=== PATIENT | male | born 1960 | race Caucasian/White ===

== ENCOUNTER → 2018-06-24 13:11 | Outpatient (CLI) | payer MEDICAID, SELFPAY ==
[2018-06-24 14:41] LABS: Anion Gap 9.4 mmol/L (3-11); BUN 17 mg/dL (7-18); CO2 27.6 mmol/L (21.0-32.0); CREATININE 1.33 mg/dL (0.70-1.30); Chloride 105 mmol/L (98-107); Estimated GFR 55.23 (mL/min/1.73m2); Glucose 90 mg/dL (70-100); Potassium 4.5 mmol/L (3.5-5.1); Sodium 142 mmol/L (136-145)
== END ==
PROVIDERS: PCP Nurse Practitioner; Visit Provider Nurse Practitioner
DX: R79.9 Abnormal finding of blood chemistry, unspecified (principal)
CPT/HCPCS: 36415; 80048

== ENCOUNTER 2019-02-16 17:37 | Emergency (ER) | payer MEDICAID, SELFPAY ==
--- NOTE | 2019-02-16 17:48 | W.ED.GENAD ---
Discharge Plan Disposition Patient Disposition: HOME Condition: Stable Discharge Details Clinical Impression: Dog bite of left hand Primary Care Provider: Phuong Castle ED Provider: Tristen Rodriguez Home Meds and New Rx's Prescriptions: New amoxicillin-pot clavulanate [Augmentin] 875-125 mg tablet 1 tab PO BID Qty: 14 RF: 0 No Action albuterol sulfate [ProAir HFA] 8.5 GM HFA aerosol inhaler 1 - 2 puff Inhalation Q4H PRN Qty: 3 RF: 4 fluticasone propion-salmeterol [Advair HFA] 8 GM HFA aerosol inhaler 2 puff Inhalation BID Qty: 1 RF: 11 buspirone 10 MG tablet 10 mg PO BID Qty: 180 RF: 3 levothyroxine [Synthroid] 75 MCG tablet 75 mcg PO DAILY Qty: 90 RF: 3 Citalopram Hydrobromide [Citalopram HBr] 10 MG tablet 10 mg PO DAILY Qty: 90 RF: 3 lisinopril 5 MG tablet 5 mg PO DAILY Qty: 90 RF: 3 fluticasone propionate 50 mcg/actuation spray,suspension 50 mcg NS DAILY Qty: 16 RF: 12 ropinirole 1 mg tablet 1 mg PO QHS RF: 0 pantoprazole [Protonix] 40 mg tablet,delayed release (DR/EC) 40 mg PO DAILY Qty: 90 RF: 3 Discharge Instructions Instructions: Animal Bite (ED) Medical Decision Making 58 yo male come in after a person he knows dog bit his left hand. Has one superficial puncture wound to posterior left hand, no severe pain, full rom, no palpable deformities so do not feel xray indicated as unlikely fx. States last tetanus vaccine within 2 years and that dog is utd on rabies and person he knows can monitor the dog for rabies, will start augmentin and d/c home Differential Diagnosis bite wound, laceration HPI General Mode of arrival: ambulatory. Date/Time Provider Initiated Documentation: 02/16/19 17:48. Limitations to Documentation: no limitations. Information obtained by: patient. History of Present Illness 58 year old M presents to the emergency department with the chief complaint of left hand dog bite, described as mild, Quality is described as aching, and is localized to the left and upper extremity. Patient started experiencing this hour(s) (1) and it has been constant. No relieving factors improve symptom(s), No exacerbating factors reported . Patient notes no other symptoms.. Patient did receive the following treatments prior to arrival, none Related Data Home Medications Medication Instructions Recorded Confirmed albuterol sulfate [Proair Hfa] 1 - 2 puff INHALATION Q4H PRN #3 07/26/15 10/21/18 inhaler fluticasone propion-salmeterol 2 puff INHALATION BID #1 inhaler 03/25/18 10/21/18 [Advair Hfa 115-21] buspirone 10 mg PO BID #180 tab-cap 05/26/18 10/21/18 levothyroxine [Synthroid] 75 mcg PO DAILY #90 tab-cap 06/19/18 10/21/18 lisinopril 5 mg PO DAILY #90 tab-cap 06/29/18 10/21/18 fluticasone propionate 50 50 mcg NS DAILY #16 gm 11/24/18 mcg/actuation nasal spray,suspension ropinirole 1 mg tablet 1 mg PO QHS 01/29/19 pantoprazole 40 mg tablet,delayed 40 mg PO DAILY #90 tab 02/05/19 release amoxicillin-pot clavulanate 1 tab PO BID #14 tab 02/16/19 [Augmentin] Previous Rx's Medication Instructions Recorded fluticasone propion-salmeterol 2 puff INHALATION BID #1 inhaler 03/25/18 [Advair Hfa 115-21] buspirone 10 mg PO BID #180 tab-cap 05/26/18 levothyroxine [Synthroid] 75 mcg PO DAILY #90 tab-cap 06/19/18 lisinopril 5 mg PO DAILY #90 tab-cap 06/29/18 fluticasone propionate 50 50 mcg NS DAILY #16 gm 11/24/18 mcg/actuation nasal spray,suspension pantoprazole 40 mg tablet,delayed 40 mg PO DAILY #90 tab 02/05/19 release amoxicillin-pot clavulanate 1 tab PO BID #14 tab 02/16/19 [Augmentin] Allergies Allergy/AdvReac Type Severity Reaction Status Date / Time fluoxetine Allergy Mild unknown Verified 10/21/18 13:33 paroxetine Allergy Mild unknown Verified 10/21/18 13:33 ANIMAL DANDER Allergy Intermediate unknown Uncoded 10/21/18 13:33 Review of Systems Review of Systems All systems reviewed & are unremarkable except as noted in HPI and below Constitutional Denies chills, Denies fever(s) and Denies weakness ENT Denies change in voice Cardiovascular Denies chest pain and Denies dyspnea Respiratory Denies cough and Denies dyspnea Gastrointestinal Denies abdominal pain, Denies nausea and Denies vomiting Neurologic Denies weakness PFSH Surgical History tongue surgery Social History Smoking/Tobacco Use Status: Never Alcohol Intake: never Substance use type: does not use Housing: apartment Number of Children: 0 What type of physical activity do you participate in: walking Duration: 15-30 minutes/day Frequency: other Details: stationary bike Seatbelt use: always Drive intox or ride w/intox milk tanker driver: No Fire extinguisher in home: Yes Carbon monox detector in home: Yes Firearms in home: Yes Exam Const General: no acute distress Orientation: alert HENMT Head: normal to inspection Ears: external ears normal General nose exam: external nose normal Mouth: moist mucous membranes Eyes General: appearance normal, both eyes and all related structures Neck Neck: normal visual inspection Resp Effort & Inspection: normal respiratory effort and able to speak in complete sentences Cardio Rate: regular rate Skin General skin exam: no rashes or lesions noted Neuro General: alert and oriented x3 Extrem General: normal capillary refill Psych Mental Status: mental status grossly normal
--- NOTE | 2019-02-16 17:55 | ED.GENADUL_ITS ---
Discharge Plan Disposition Patient Disposition: HOME Condition: Stable Discharge Details Clinical Impression: Dog bite of left hand Primary Care Provider: Phuong Castle ED Provider: Tristen Rodriguez Home Meds and New Rx's Prescriptions: New amoxicillin-pot clavulanate [Augmentin] 875-125 mg tablet 1 tab PO BID Qty: 14 RF: 0 No Action albuterol sulfate [ProAir HFA] 8.5 GM HFA aerosol inhaler 1 - 2 puff Inhalation Q4H PRN Qty: 3 RF: 4 fluticasone propion-salmeterol [Advair HFA] 8 GM HFA aerosol inhaler 2 puff Inhalation BID Qty: 1 RF: 11 buspirone 10 MG tablet 10 mg PO BID Qty: 180 RF: 3 levothyroxine [Synthroid] 75 MCG tablet 75 mcg PO DAILY Qty: 90 RF: 3 Citalopram Hydrobromide [Citalopram HBr] 10 MG tablet 10 mg PO DAILY Qty: 90 RF: 3 lisinopril 5 MG tablet 5 mg PO DAILY Qty: 90 RF: 3 fluticasone propionate 50 mcg/actuation spray,suspension 50 mcg NS DAILY Qty: 16 RF: 12 ropinirole 1 mg tablet 1 mg PO QHS RF: 0 pantoprazole [Protonix] 40 mg tablet,delayed release (DR/EC) 40 mg PO DAILY Qty: 90 RF: 3 Discharge Instructions Instructions: Animal Bite (ED) Medical Decision Making 58 yo male come in after a person he knows dog bit his left hand. Has one superficial puncture wound to posterior left hand, no severe pain, full rom, no palpable deformities so do not feel xray indicated as unlikely fx. States last tetanus vaccine within 2 years and that dog is utd on rabies and person he knows can monitor the dog for rabies, will start augmentin and d/c home Differential Diagnosis bite wound, laceration HPI General Mode of arrival: ambulatory . Date/Time Provider Initiated Documentation: 02/16/19 17:48 . Limitations to Documentation: no limitations . Information obtained by: patient . History of Present Illness 58 year old M presents to the emergency department with the chief complaint of left hand dog bite, described as mild, Quality is described as aching, and is localized to the left and upper extremity. Patient started experiencing this hour(s) (1) and it has been constant. No relieving factors improve symptom(s), No exacerbating factors reported . Patient notes no other symptoms.. Patient did receive the following treatments prior to arrival, none Related Data Home Medications Medication Instructions Recorded Confirmed albuterol sulfate [Proair Hfa] 1 - 2 puff INHALATION Q4H PRN #3 07/26/15 10/21/18 inhaler fluticasone propion-salmeterol 2 puff INHALATION BID #1 inhaler 03/25/18 10/21/18 [Advair Hfa 115-21] buspirone 10 mg PO BID #180 tab-cap 05/26/18 10/21/18 levothyroxine [Synthroid] 75 mcg PO DAILY #90 tab-cap 06/19/18 10/21/18 lisinopril 5 mg PO DAILY #90 tab-cap 06/29/18 10/21/18 fluticasone propionate 50 50 mcg NS DAILY #16 gm 11/24/18 mcg/actuation nasal spray,suspension ropinirole 1 mg tablet 1 mg PO QHS 01/29/19 pantoprazole 40 mg tablet,delayed 40 mg PO DAILY #90 tab 02/05/19 release amoxicillin-pot clavulanate 1 tab PO BID #14 tab 02/16/19 [Augmentin] Previous Rx's Medication Instructions Recorded fluticasone propion-salmeterol 2 puff INHALATION BID #1 inhaler 03/25/18 [Advair Hfa 115-21] buspirone 10 mg PO BID #180 tab-cap 05/26/18 levothyroxine [Synthroid] 75 mcg PO DAILY #90 tab-cap 06/19/18 lisinopril 5 mg PO DAILY #90 tab-cap 06/29/18 fluticasone propionate 50 50 mcg NS DAILY #16 gm 11/24/18 mcg/actuation nasal spray,suspension pantoprazole 40 mg tablet,delayed 40 mg PO DAILY #90 tab 02/05/19 release amoxicillin-pot clavulanate 1 tab PO BID #14 tab 02/16/19 [Augmentin] Allergies Allergy/AdvReac Type Severity Reaction Status Date / Time fluoxetine Allergy Mild unknown Verified 10/21/18 13:33 paroxetine Allergy Mild unknown Verified 10/21/18 13:33 ANIMAL DANDER Allergy Intermediate unknown Uncoded 10/21/18 13:33 Review of Systems Review of Systems All systems reviewed & are unremarkable except as noted in HPI and below Constitutional Denies chills, Denies fever(s) and Denies weakness ENT Denies change in voice Cardiovascular Denies chest pain and Denies dyspnea Respiratory Denies cough and Denies dyspnea Gastrointestinal Denies abdominal pain, Denies nausea and Denies vomiting Neurologic Denies weakness PFSH Surgical History tongue surgery Social History Smoking/Tobacco Use Status: Never Alcohol Intake: never Substance use type: does not use Housing: apartment Number of Children: 0 What type of physical activity do you participate in: walking Duration: 15-30 minutes/day Frequency: other Details: stationary bike Seatbelt use: always Drive intox or ride w/intox show horse driver: No Fire extinguisher in home: Yes Carbon monox detector in home: Yes Firearms in home: Yes Exam Const General: no acute distress Orientation: alert HENMT Head: normal to inspection Ears: external ears normal General nose exam: external nose normal Mouth: moist mucous membranes Eyes General: appearance normal, both eyes and all related structures Neck Neck: normal visual inspection Resp Effort & Inspection: normal respiratory effort and able to speak in complete sentences Cardio Rate: regular rate Skin General skin exam: no rashes or lesions noted Neuro General: alert and oriented x3 Extrem General: normal capillary refill Psych Mental Status: mental status grossly normal
[2019-02-16 17:59] VITALS: BP 140/90; PULSE 110; RESP 18; TEMP 37; O2SAT 95
--- NOTE | 2019-02-16 19:04 | NUR.NOTE ---
animal bite reported to [facility], form faxed to [phone].Nursing Note:
== END 2019-02-16 18:00 | disposition home or self-care (01) ==
PROVIDERS: Emergency Provider Emergency Medicine; PCP Nurse Practitioner
DX: S61.452A Open bite of left hand, initial encounter (principal); W54.0XXA Bitten by dog, initial encounter
CPT/HCPCS: 99282

== ENCOUNTER 2019-02-19 14:52 | Outpatient (CLI) | payer MEDICAID, SELFPAY ==
[2019-02-19 15:12] LABS: HCT 42.8 % (40.0-50.0); HGB 14.3 g/dL (13.5-17.5); Mean Corp. HGB Concentration 33.4 g/dL (32.0-36.0); Mean Corpuscular Hemoglobin 29.6 pg (27.0-33.0); Mean Corpuscular Volume 88.6 fL (80-95); Mean Platelet Volume 9.2 fL (8.0-11.0); Platelet Count 218 x1000/uL (130-400); RBC 4.83 m/cumm (4.50-6.00); RBC Distribution Width 13.2 % (11.8-14.1); White Blood Cell Count 7.44 k/cumm (4.4-10.8)
[2019-02-19 16:42] LABS: ALT 30 U/L (12-78); AST 23 U/L (15-37); Albumin 3.4 g/dL (3.4-5.0); Alkaline Phosphatase 81 U/L (46-116); Anion Gap 8.4 mmol/L (3-11); BUN 24 mg/dL (7-18); Bilirubin, Total 0.4 mg/dL (0.2-1.0); CO2 27.6 mmol/L (21.0-32.0); CREATININE 1.29 mg/dL (0.70-1.30); Calcium 8.8 mg/dL (8.5-10.1); Chloride 105 mmol/L (98-107); Cholesterol 206 mg/dL (50-200); Estimated GFR 57.01 (mL/min/1.73m2); Glucose 107 mg/dL (70-100); HDL Cholesterol 58 mg/dL (40-60); LDL CHOLESTEROL 117 mg/dL (<100); Potassium 4.2 mmol/L (3.5-5.1); Sodium 141 mmol/L (136-145); TSH (W/Ref FT4) 1.05 uIU/mL (0.358-3.74); Triglyceride 296 mg/dL (30-150)
== END 2019-02-19 15:12 ==
PROVIDERS: PCP Nurse Practitioner; Visit Provider Nurse Practitioner
DX: I10 Essential (primary) hypertension (principal); E03.9 Hypothyroidism, unspecified; E78.5 Hyperlipidemia, unspecified; E66.9 Obesity, unspecified
CPT/HCPCS: 36415; 80053; 80061; 83721; 85027; 84443

== ENCOUNTER 2019-11-11 12:06 | Outpatient (CLI) | payer MEDICAID, SELFPAY ==
[2019-11-11 12:30] LABS: Bilirubin Negative (Negative); Blood Trace-intact (Negative); Clarity Clear (Clear); Glucose Negative (Negative); Ketones Negative (Negative); Leukocyte Esterase Negative (Negative); Nitrite Negative (Negative); Urobilinogen 0.2 EU/dL (Up TO 0.2); pH 5.5 (5-8)
[2019-11-11 12:43] LABS: Bacteria Few HPF (Negative); C & S Indicated? No; Casts Negative LPF (Negative); Crystals Negative HPF (Negative); Epithelial Cells Rare HPF (Negative); Mucus Moderate (Negative); WBC 0-2 HPF (0-5)
[2019-11-11 13:09] LABS: Hemoglobin A1C 5.5 % (3.8-5.6)
[2019-11-11 13:46] LABS: ALT 29 U/L (16-63); AST 20 U/L (15-37); Albumin 3.6 g/dL (3.4-5.0); Alkaline Phosphatase 63 U/L (46-116); Anion Gap 9.8 mmol/L (3-11); BUN 27 mg/dL (7-18); CO2 28.2 mmol/L (21.0-32.0); CREATININE 1.19 mg/dL (0.70-1.30); Calcium 8.9 mg/dL (8.5-10.1); Calculated LDL 127 mg/dL; Chloride 103 mmol/L (98-107); Cholesterol 216 mg/dL (<200); Glucose 83 mg/dL (74-106); HDL Cholesterol 70 mg/dL (40-60); Potassium 4.6 mmol/L (3.5-5.1); Sodium 141 mmol/L (136-145); TSH (W/Ref FT4) 3.61 uIU/mL (0.36-3.74); Total Protein 7.2 g/dL (6.4-8.2); Triglyceride 97 mg/dL (<150)
[2019-11-11 14:06] LABS: Bilirubin, Total 0.5 mg/dL (0.2-1.0)
== END 2019-11-11 12:26 ==
PROVIDERS: PCP Nurse Practitioner; Visit Provider Nurse Practitioner
DX: E11.9 Type 2 diabetes mellitus without complications (principal); E78.5 Hyperlipidemia, unspecified; E03.9 Hypothyroidism, unspecified; I10 Essential (primary) hypertension; R73.01 Impaired fasting glucose; E66.9 Obesity, unspecified
CPT/HCPCS: 36415; 80053; 80061; 81003; 81015; 83036; 84443

== ENCOUNTER 2020-01-04 01:52 | Emergency (ER) | payer MEDICAID, SELFPAY ==
--- NOTE | 2020-01-04 01:51 | ED.GENADUL_ITS ---
Discharge Plan Disposition Patient Disposition: HOME Condition: Good Discharge Details Chief Complaint: Dizzy/Sync Clinical Impression: Near syncope Primary Care Provider: Phuong Castle ED Provider: Andrew Moya Burkburnett Meds and New Rx's Prescriptions: Continued buspirone 10 mg tablet 10 mg PO BID Qty: 180 RF: 3 levothyroxine [Synthroid] 75 mcg tablet 75 mcg PO DAILY Qty: 90 RF: 3 lisinopril 5 mg tablet 5 mg PO DAILY Qty: 90 RF: 3 citalopram 10 mg tablet 10 mg PO DAILY Qty: 90 RF: 3 albuterol sulfate [ProAir HFA] 8.5 GM HFA aerosol inhaler 1 - 2 puff Inhalation Q4H PRN Qty: 3 RF: 4 fluticasone propionate 50 mcg/actuation spray,suspension 50 mcg NS DAILY Qty: 16 RF: 12 pantoprazole [Protonix] 40 mg tablet,delayed release (DR/EC) 40 mg PO DAILY Qty: 90 RF: 3 Advair HFA 115-21 mcg/actuation HFA aerosol inhaler 2 puff Inhalation BID Qty: 1 RF: 11 ropinirole 1 mg tablet 1 mg PO QHS RF: 0 Discharge Instructions Instructions: Near Syncope (ED) Additional Instructions: Be sure to drink plenty of fluids and stay hydrated. Follow up with PCP in the next few weeks for recheck. Return to ED for fainting, confusion, chest pain, shortness of breath, other concerns. Referrals: Phuong Castle, [facility] [Primary Care Provider] - Medical Decision Making Patient presents with episode of near syncope and nausea. Denies having any type of chest pain or pressure. Denies shortness of breath. Has a benign abdomen currently. Has no symptoms at this time. Has normal vitals. While not explicitly chest pain will work-up as such. Do not think we need to pursue a PE, dissection, pneumonia work-up. I think if we do 2 sets of enzymes and watch him on the monitor without changes/problems will be able to go home. 06:20 - Labs are unremarkable. Kidney function is upper limit of his normal ranges. Second troponin is normal. No arrhythmias while here. Discharge home. Hydrate. Follow up with PCP within the next few weeks. Return to ED for syncope, chest pain, shortness of breath, other concerns. Medical Records Medical records reviewed: Yes I reviewed the patient's medical records. Lab Data Lab results reviewed: Yes I reviewed the patient's lab results. ECG Data Attestation: I personally reviewed and interpreted this ECG (s) as follows: Prior ECG tracings: not available for review Interpretation: Normal sinus rhythm at a rate of 76. Normal axis and intervals. No acute ST changes. HPI General Mode of arrival: EMS . Date/Time Provider Initiated Documentation: 01/04/20 02:05 . Limitations to Documentation: no limitations . Information obtained by: patient, RN notes reviewed and old records reviewed . HPI Narrative: Patient presents to ED with complaint of lightheadedness, near syncope, nausea when he got up from bed to go to the bathroom. He had felt like he was having a little bit of reflux symptoms tonight. He got up to go to the bathroom and got lightheaded and dizzy with white spots in front of my eyes. He felt like he might pass out. He was very nauseated. He sat down and had his roommate call 911. By the time EMS arrived he was feeling fine. He denied any syncope. He denied any chest pain or shortness of breath. The nausea has resolved. He had no vomiting. He has chronic lower abdominal pain which is unchanged. He has not been ill prior to this. Related Data Home Medications Medication Instructions Recorded Confirmed albuterol sulfate [ProAir HFA] 1 - 2 puff INHALATION Q4H PRN #3 07/26/15 01/04/20 inhaler fluticasone propionate 50 50 mcg NS DAILY #16 gm 11/24/18 01/04/20 mcg/actuation nasal spray,suspension pantoprazole 40 mg tablet,delayed 40 mg PO DAILY #90 tab 02/05/19 01/04/20 release fluticasone propionate 115 2 puff INHALATION BID #1 inhaler 03/15/19 01/04/20 mcg-salmeterol 21 mcg/actuation HFA inhaler ropinirole 1 mg tablet 1 mg PO QHS 03/30/19 01/04/20 buspirone 10 mg tablet 10 mg PO BID #180 tab-cap 04/28/19 01/04/20 citalopram 10 mg tablet 10 mg PO DAILY #90 tab 04/28/19 01/04/20 levothyroxine 75 mcg tablet 75 mcg PO DAILY #90 tab-cap 04/28/19 01/04/20 lisinopril 5 mg tablet 5 mg PO DAILY #90 tab-cap 04/28/19 01/04/20 Previous Rx's Medication Instructions Recorded fluticasone propionate 50 50 mcg NS DAILY #16 gm 11/24/18 mcg/actuation nasal spray,suspension pantoprazole 40 mg tablet,delayed 40 mg PO DAILY #90 tab 02/05/19 release fluticasone propionate 115 2 puff INHALATION BID #1 inhaler 03/15/19 mcg-salmeterol 21 mcg/actuation HFA inhaler buspirone 10 mg tablet 10 mg PO BID #180 tab-cap 04/28/19 citalopram 10 mg tablet 10 mg PO DAILY #90 tab 04/28/19 levothyroxine 75 mcg tablet 75 mcg PO DAILY #90 tab-cap 04/28/19 lisinopril 5 mg tablet 5 mg PO DAILY #90 tab-cap 04/28/19 Allergies Allergy/AdvReac Type Severity Reaction Status Date / Time fluoxetine Allergy Mild unknown Verified 11/08/19 13:23 paroxetine Allergy Mild unknown Verified 11/08/19 13:23 ANIMAL DANDER Allergy Intermediate unknown Uncoded 11/08/19 13:23 General KRISTA: 5 Review of Systems Narrative: As documented in HPI otherwise negative as below. Const: no fever, chills, weakness Resp: no cough, SOB, pleuritic pain CV: no CP, diaphoresis, edema, syncope GI: chronic mild abdominal pain, nausea; no vomiting, diarrhea Neuro: no headache, numbness, focal weakness, confusion [facility] Medical History Asthma (Chronic 04/16/13) Depression (Chronic 07/26/15) Esophageal reflux disease (Chronic 01/28/12) Essential hypertension (Chronic 04/16/13) Hyperlipidemia (Chronic 06/30/14) PCEq 3.7%; LDL baseline 108 Hypothyroidism (Chronic 04/16/13) Obesity (Chronic 10/28/13) Obstructive sleep apnea syndrome (Chronic 03/10/13) Pedro Tai. 03/30/19 Surgical History tongue surgery removal benign lesion about 1999 Social History Smoking/Tobacco Use Status: Never Alcohol Intake: never Substance use type: does not use Housing: apartment Number of Children: 0 What is your relationship status?: never Panel score (0-1 are the most socially isolated patients): 0 What type of physical activity do you participate in: walking and other Details: 6 times a week 30-45 minutes Duration: 30-45 minutes/day Frequency: other Details: stationary bike Seatbelt use: always Drive intox or ride w/intox racing car driver: No Fire extinguisher in home: Yes Carbon monox detector in home: Yes Firearms in home: Yes Do you feel safe at home: Yes Do you feel safe in your relationship?: Yes Exam Narrative Exam Narrative: Vitals: Afebrile. Normal vitals and room air pulse ox. Const: Morbidly obese male in NAD. HEENT: NC/AT. Normal facial exam. Eyes: Normal conjunctiva and sclera. Neck: Supple. Trachea midline. Lungs: Normal respiratory effort. Lungs are clear. Cor: RRR without murmur/gallop. Good radial pulses. GI: Soft. NT/ND. No guarding or rebound. Neuro: A+O x 3. Normal speech, mentation, gait. Cranial nerves II - XII grossly intact. No gross motor or sensory deficit. Ext: No C/C/E. No calf tenderness. Skin: Warm and dry.
[2020-01-04 01:53] VITALS: BP 138/79; PULSE 83; RESP 20; TEMP 36.4; O2SAT 98
[2020-01-04 01:58] VITALS: RESP 15
[2020-01-04 02:19] LABS: Abs Immature Grans 0.02 k/cumm (0.0-0.09); Absolute Basophil Count 0.04 k/cumm (0.0-0.2); Absolute Eosinophil Count 0.64 k/cumm (0.0-0.7); Absolute Monocyte Count 0.91 k/cumm (0.11-0.7); Absolute Neutrophil Count 5.27 k/cumm (1.2-6.7); Basophils % 0.5; Eosinophils % 7.2; HCT 42.5 % (40.0-50.0); HGB 14.6 g/dL (13.5-17.5); Immature Grans % 0.2 %; Lymphocytes % 22.5; Mean Corp. HGB Concentration 34.4 g/dL (32.0-36.0); Mean Corpuscular Hemoglobin 29.7 pg (27.0-33.0); Mean Corpuscular Volume 86.6 fL (80-95); Mean Platelet Volume 9.1 fL (8.0-11.0); Monocytes % 10.2; Neutrophils % 59.4; Platelet Count 245 x1000/uL (130-400); RBC 4.91 m/cumm (4.50-6.00); RBC Distribution Width 13.1 % (11.8-14.1); White Blood Cell Count 8.88 k/cumm (4.4-10.8)
[2020-01-04 02:32] LABS: ALT 27 U/L (16-63); AST 20 U/L (15-37); Albumin 3.6 g/dL (3.4-5.0); Alkaline Phosphatase 70 U/L (46-116); Anion Gap 8.4 mmol/L (3-11); BUN 24 mg/dL (7-18); Bilirubin, Total 0.4 mg/dL (0.2-1.0); CO2 27.6 mmol/L (21.0-32.0); CREATININE 1.38 mg/dL (0.70-1.30); Calcium 8.4 mg/dL (8.5-10.1); Chloride 101 mmol/L (98-107); Estimated GFR 52.56 (mL/min/1.73m2); Glucose 105 mg/dL (74-106); Magnesium 1.9 mg/dL (1.8-2.4); Potassium 3.6 mmol/L (3.5-5.1); Sodium 137 mmol/L (136-145); Total Protein 7.2 g/dL (6.4-8.2)
[2020-01-04 02:36] LABS: Troponin I < 0.05 ng/Ml (<0.06)
[2020-01-04 05:27] VITALS: BP 132/79; PULSE 84; RESP 16
[2020-01-04 06:18] LABS: Troponin I < 0.05 ng/Ml (<0.06)
[2020-01-04 06:30] VITALS: BP 114/68; PULSE 88; RESP 13; O2SAT 100
== END 2020-01-04 06:30 | disposition home or self-care (01) ==
LOC: ER 06:38
PROVIDERS: Emergency Provider Emergency Medicine; PCP Nurse Practitioner
DX: R55 Syncope and collapse (principal); I10 Essential (primary) hypertension
CPT/HCPCS: 80053; 93005; 99284; 83735; 84484; 85025; 93010

== ENCOUNTER 2020-12-18 03:20 | Outpatient (CLI) | payer MEDICAID, SELFPAY ==
[2020-12-18 15:21] LABS: HCT 43.6 % (40.0-50.0); HGB 14.8 g/dL (13.5-17.5); MCH 29.7 pg (27.0-33.0); MCHC 33.9 % (32.0-36.0); MCV 87.6 fL (80-95); MPV 8.8 fL (8.0-11.0); Platelet Count 242 10^3/uL (130-400); RBC 4.98 10^6/uL (4.36-5.78); RDW 13.1 % (11.8-14.1); RDW-SD 41.7 fL; WBC 7.67 10^3/uL (4.4-10.8)
[2020-12-18 16:43] LABS: ALT 34 U/L (16-63); AST 22 U/L (15-37); Albumin 3.6 g/dL (3.4-5.0); Alkaline Phosphatase 70 U/L (46-116); Anion Gap 9.5 mmol/L (3-11); BUN 26 mg/dL (7-18); Bilirubin, Total 0.6 mg/dL (0.2-1.0); CO2 25.5 mmol/L (21.0-32.0); CREATININE 1.3 mg/dL (0.70-1.30); Calcium 9.2 mg/dL (8.5-10.1); Calculated LDL 98 mg/dL (<100); Chloride 107 mmol/L (98-107); Cholesterol 201 mg/dL (<200); Estimated GFR 56.12 (mL/min/1.73m2); Glucose 90 mg/dL (74-106); HDL Cholesterol 71 mg/dL (40-60); Potassium 4.4 mmol/L (3.5-5.1); Sodium 142 mmol/L (136-145); TSH (W/Ref FT4) 3.03 uIU/mL (0.36-3.74); Total Protein 7.3 g/dL (6.4-8.2); Triglyceride 160 mg/dL (<150)
== END 2020-12-18 03:21 | disposition home or self-care (01) ==
LOC: LBO 03:20
PROVIDERS: PCP Nurse Practitioner; Visit Provider Nurse Practitioner
DX: I10 Essential (primary) hypertension (principal); E78.5 Hyperlipidemia, unspecified; E03.9 Hypothyroidism, unspecified; E66.9 Obesity, unspecified
CPT/HCPCS: 36415; 80053; 80061; 85027; 84443

== ENCOUNTER 2021-05-07 14:58 | Outpatient (CLI) | payer MEDICAID, SELFPAY ==
--- NOTE | 2021-05-07 15:05 | DI.RAD_ITS ---
Exam(s) XR KNEE RT 3V AP,LAT,USAMA EXAM: XR KNEE RT 3V AP,LAT,USAMA CLINICAL HISTORY: eval R knee pain. TECHNIQUE: 2D digital imaging was performed. COMPARISON: No exams were available for comparison FINDINGS: There is no evidence acute fracture although there does appear to be a slight increased amount of peter nt fluid. There are osteoarthritic degenerative changes noted in the medial and patellofemoral cara rtments. In addition, there is a calcified loose body measuring 1.6 by 1.0 by 1.8 cm located in ante rior aspect of the lateral compartment of the knee. There is also a calcific density noted posterior ly measuring 1.0 x 0.6 cm. This 2nd finding is probably a posterior osteophyte. IMPRESSION: Degenerative changes. Also loose intra-articular body as described above. DATA REPOSITORY: RADIATION DOSE DELIVERED:
== END 2021-05-07 14:59 | disposition home or self-care (01) ==
LOC: DIORS 14:58
PROVIDERS: PCP Nurse Practitioner; Referring Provider Nurse Practitioner; Visit Provider Student in an Organized Health Care Education/Training Program
DX: M17.11 Unilateral primary osteoarthritis, right knee (principal); M23.41 Loose body in knee, right knee
CPT/HCPCS: 73562

== ENCOUNTER 2021-09-07 01:23 | Outpatient (CLI) | payer MEDICAID, SELFPAY ==
[2021-09-07 12:55] LABS: Source Nasal/Nares
[2021-09-07 15:52] LABS: COVID-19 PCR Negative (Negative)
== END 2021-09-07 01:24 | disposition home or self-care (01) ==
LOC: LBO 01:23
PROVIDERS: Surgery; PCP Nurse Practitioner; Visit Provider Surgery
DX: Z20.822 Contact with and (suspected) exposure to COVID-19 (principal)
CPT/HCPCS: 87635

== ENCOUNTER 2021-09-10 09:14 | Day surgery (SDC) | payer MEDICAID, SELFPAY ==
--- NOTE | 2021-09-10 06:22 | W.ANESPRE ---
General Info Height: 5 ft 6.5 in Weight: 141.067 kg Body Mass Index (BMI): 49.4 Surgical Procedure: Operation Date: 09/10/21 10:35 Proposed Procedures Side Surgeon p Tripp Dutton MD Meds Allergies and Home Medications Allergies Allergy/AdvReac Type Severity Reaction Status Date / Time fluoxetine Allergy Mild unknown Verified 09/10/21 09:39 paroxetine Allergy Mild unknown Verified 09/10/21 09:39 ANIMAL DANDER Allergy Intermediate unknown Uncoded 09/10/21 09:39 Home Medication Medication Instructions Recorded albuterol sulfate [ProAir HFA] 1 - 2 puff INHALATION Q4H PRN #3 07/26/15 inhaler nystatin 100,000 unit/gram topical 1 applic TOPICAL TID #60 g MDD 3 03/21/21 powder applications citalopram 10 mg tablet 10 mg PO DAILY #90 tab 04/16/21 fluticasone propionate 115 2 puff INHALATION BID #1 inhaler 04/16/21 mcg-salmeterol 21 mcg/actuation HFA inhaler lisinopril 5 mg tablet 5 mg PO DAILY #90 tab-cap 06/14/21 levothyroxine 75 mcg tablet 75 mcg PO DAILY #90 tab-cap 06/27/21 fluticasone propionate 50 50 mcg NS DAILY #16 gm 07/10/21 mcg/actuation nasal spray,suspension pantoprazole 40 mg tablet,delayed 40 mg PO DAILY #90 tab 08/03/21 release aspirin 81 mg chewable tablet 81 mg PO DAILY 08/31/21 bisacodyl 5 mg tablet,delayed 5 mg PO ONCE #4 tab 08/31/21 release polyethylene glycol 3350 17 238 g PO ONCE #238 g 08/31/21 gram/dose oral powder Current Visit Medications: Current Medications Generic Name Dose Route Start Last Admin Trade Name Freq PRN Reason Stop Dose Admin Ringer's Solution 1,000 mls @ 80 mls/hr 09/10/21 06:00 IV 10/07/21 23:59 INFUSION ACE IV Miscellaneous Supplies 1 each 09/10/21 06:00 Iv Access IV 10/07/21 23:59 DIRECTED ACE Sodium Chloride 0 ml 09/10/21 06:00 Normal Saline Flush 10 Ml Syr IV 10/07/21 23:59 PRN PRN Sodium Chloride 0 ml 09/10/21 06:00 Normal Saline 10 Ml Vial IJ 10/07/21 23:59 DIRECTED PRN Sterile Water 0 ml 09/10/21 06:00 Water,Injection,Sterile 10 Ml Vial IJ 10/07/21 23:59 DIRECTED PRN PFSH Active Problems Active Problems: Problem Status Onset Code Loose body of right knee M23.41 Arthritis of right knee M17.11 Encounter for screening colonoscopy Z12.11 Cerumen impaction H61.20 Near syncope R55 Asthma 04/16/13 J45.909 Depression 07/26/15 F32.9 Esophageal reflux disease 01/28/12 K21.9 Essential hypertension 04/16/13 I10 Hyperlipidemia 06/30/14 E78.5 Hypothyroidism 04/16/13 E03.9 Obesity 10/28/13 E66.9 Obstructive sleep apnea syndrome 03/10/13 G47.33 Periodic limb movement disorder G47.61 Rhinitis, chronic 12/22/15 J31.0 Medical History Medical History Asthma (04/16/13) Depression (07/26/15) Esophageal reflux disease (01/28/12) Essential hypertension (04/16/13) Hyperlipidemia (06/30/14) PCEq 3.7%; LDL baseline 108 Hypothyroidism (04/16/13) Obesity (10/28/13) Obstructive sleep apnea syndrome (03/10/13) Pedro Tai. 03/30/19 Surgical History Surgical History (Updated 09/10/21 @ 09:51 by Lu Lemus) History of colonoscopy tongue surgery removal benign lesion about 1999 Tobacco Smoking/Tobacco Use Status: Never Passive smoking exposure: Yes Alcohol Alcohol Intake: never Substance Use Substance use type: does not use Vital Signs and Lab Results Vital Signs Most Recent Vital Signs in EMR: Temp Pulse Resp BP Pulse Ox 37.7 C H 97 H 18 134/98 H 100 09/10/21 09:40 09/10/21 09:40 09/10/21 09:40 09/10/21 09:40 09/10/21 09:40 Lab Results Blood Type / Crossmatch: No Data to Display Complete Blood Count: No Data to Display Complete Metabolic Panel: No Data to Display Liver Function Panel: No Data to Display Coagulation Panel: No Data to Display Cardiac Panel: No Data to Display Arterial Blood Gas: No Data to Display Venous Blood Gas: No Data to Display Pancreas Panel: No Data to Display Thyroid Panel: No Data to Display Infectious Disease: Coronavirus (COVID-19)(PCR) Negative (Negative) 09/07/21 10:36 09/07/21 Coronavirus 2019 Source Nasal/Nares 09/07/21 10:36 09/07/21 Blood Cultures: No Data to Display Toxicology Panel: No Data to Display Imaging and Studies Imaging and Studies Pulmonary Function Summary: 2010: mild obstructive dz, no sig bronchodilator response. Anesthesia Assessment and Plan Anesthesia History Personal History: No History of Anesthesia Complications Family History: No Family History of Anesthesia Complications Exercise Tolerance Exercise Tolerance: Metabolic Equivalents>4 ASA Classification ASA Score: ASA 3 Emergency Case?: No Anesthesia Plan Resuscitation Status: Full Code Anesthesia Technique: General Anesthesia Airway Planned: Natural Airway Monitors Used: Standard Monitors Preoperative Comments:: 60 yo male for screening colonoscopy. Sig PMHx: HTN (lisinopril), hypothyroid (on replacement), GERD (pantoprazole), asthma (fluticasone/salmeterol/albuterol), JEVON, never smoker.
--- NOTE | 2021-09-10 06:46 | W.COLOREPORT ---
Colonoscopy Report Date of procedure: 09/10/21 Pre-op diagnosis general: Colon Cancer Screening Post-op diagnosis procedure note: same Procedure: Colonoscopy with polypectomy Surgeon: Beba Dutton Anesthesia Type: General:No Airway (Jf Castaneda CRNA) Estimated blood loss (mL): 3 Pathology: other (Ascending colon and transverse colon polyp) Complications: None Disposition: same day Indications: The patient is here for Colonoscopy pre-op. His last screening was in 2010 and was unremarkable. He has no family history of colon cancer. He has not had any bowel habit changes. -Discussed colonoscopy bowel prep as well as the procedure. Discussed possible complications of the procedure to include bleeding, pain, perforation, missed small lesion/polyp, sore throat, aspiration and adverse reaction to the medications. Questions were answered to patient?s satisfaction. No guarantees were implied or given. Prep: Miralax/Dulcolax Procedure Start Time: 11:13 Procedure End Time: 11:34 Retraction Time: 15 minutes Findings: 2 small sessile polyps mild diverticulosis Procedure Description: After informed consent was obtained the patient was taken to the procedure room and placed in a left decubitous position. Monitors were applied and a time out was done. The patients name, date of , procedure, allergies to medications and metal in their body was reviewed. The patient was then sedated. Once sedated and comfortable a rectal exam was done. External exam was normal. Internal exam revealed a normal sphincter tone and no palpable masses. The prostate felt smooth and slightly enlarged. The scope was then introduced and retro-flexed. No internal hemorrhoids, polyps or masses were identified on retro-flexion. The scope was then advanced to the cecum without difficulty. The ileocecal vlave and appendiceal orifice were identified. The prep was good. The scope was then slowly retracted over 15 minutes back into the rectum. Polyps were removed with cold forceps in the ascending colon and transverse colon. There was mild sigmoid diverticulosis noted. The scope was removed and the patient was woken up and taken back to Same day surgery in stable condition. The patient tolerated the procedure well and there were no immediate complications. Follow up: The patient should follow up in 5 years unless they develop changes in bowel habits or other new gastrointestinal complaints.
--- NOTE | 2021-09-10 06:47 | W.PM.DSUDISC ---
Discharge Plan Disposition Patient Disposition: HOME Condition: Good Discharge Details Reason For Visit: Colonoscopy Attending Provider: Beba Dutton Primary Care Provider: Phuong Castle Home Meds and New Rx's Prescriptions: Continued fluticasone propionate 50 mcg/actuation spray,suspension 50 mcg NS DAILY Qty: 16 RF: 12 aspirin 81 mg tablet,chewable 81 mg PO DAILY RF: 0 nystatin 100,000 unit/gram powder 1 applic topical TID MDD 3 applications Qty: 60 RF: 1 albuterol sulfate [ProAir HFA] 8.5 GM HFA aerosol inhaler 1 - 2 puff Inhalation Q4H PRN Qty: 3 RF: 4 citalopram 10 mg tablet 10 mg PO DAILY Qty: 90 RF: 3 Advair HFA 115-21 mcg/actuation HFA aerosol inhaler 2 puff Inhalation BID Qty: 1 RF: 11 lisinopril 5 mg tablet 5 mg PO DAILY Qty: 90 RF: 3 levothyroxine [Synthroid] 75 mcg tablet 75 mcg PO DAILY Qty: 90 RF: 3 pantoprazole [Protonix] 40 mg tablet,delayed release (DR/EC) 40 mg PO DAILY Qty: 90 RF: 1 Discontinued polyethylene glycol 3350 17 gram/dose powder 238 g PO ONCE Qty: 238 RF: 0 bisacodyl [Dulcolax (bisacodyl)] 5 mg tablet,delayed release (DR/EC) 5 mg PO ONCE Qty: 4 RF: 0 Discharge Instructions Instructions: Diverticulosis (DC) Additional Instructions: Findings: 2 small polyps mild diverticulosis Follow up: 5 years Please call if you develop: fevers >101.5 Nausea or Vomiting Abdominal pain that is not transient Rectal bleeding that is more then a tbsp A hard abdomen and inability to pass gas DAY SURGERY UNIT POST ENDOSCOPY INSTRUCTIONS Instructions for everyone who is given Anesthesia: For your safety, please do the following for the next 24 Hours: a. Do not drive or operate dangerous equipment b. Do not drink alcohol beverages or use any recreational drugs for the first 24 hours or while taking pain medications. The medications in your body may have a reaction that can be dangerous. c. Do not make any important decisions or sign any important papers 1. Generally there are no restrictions on your activity after a day or so has gone by, but you may feel a bit fatigued for a few days. 2. After you arrive home you may have a light meal and return to a normal diet as you can tolerate it without feeling sick to your stomach. 3. After surgery, you may feel pain or discomfort. This should be only transient, but if it persists please contact your doctor. 4. If there are any questions regarding the findings of your procedure, please feel free to contact your doctor. 6. If you are unable to contact your doctor with a problem, contact the hospital at [phone]. 7. Continue all your regular medications unless directed otherwise. I understand the above instructions and have no questions. Signature of Patient or Responsible Adult Escort Date/Time Name of Responsible Adult Escort Signature of Nurse Date/Time Activity:: Activity as Tolerated Diet:: high fiberd diet Discharge Orders Discharge Orders: Discharge Order (Routine); Ordered 09/10/21 Ordered By: Beba Dutton
[2021-09-10 09:40] VITALS: BP 134/98; PULSE 97; RESP 18; TEMP 37.7; O2SAT 100
[2021-09-10] MEDS: Lactated Ringers 1,000 ML 80 ML IV (10:06)
--- NOTE | 2021-09-10 10:58 | ANES.PREOP_ITS ---
General Info Date of Service Date Performed: 09/10/21 Height: 5 ft 6.5 in Weight: 141.067 kg Body Mass Index (BMI): 49.4 Surgical Procedure: Operation Date: 09/10/21 10:35 Proposed Procedures Side Surgeon p Tripp Dutton MD Meds Allergies and Home Medications Allergies Allergy/AdvReac Type Severity Reaction Status Date / Time fluoxetine Allergy Mild unknown Verified 09/10/21 09:39 paroxetine Allergy Mild unknown Verified 09/10/21 09:39 ANIMAL DANDER Allergy Intermediate unknown Uncoded 09/10/21 09:39 Home Medication Medication Instructions Recorded albuterol sulfate [ProAir HFA] 1 - 2 puff INHALATION Q4H PRN #3 07/26/15 inhaler nystatin 100,000 unit/gram topical 1 applic TOPICAL TID #60 g MDD 3 03/21/21 powder applications citalopram 10 mg tablet 10 mg PO DAILY #90 tab 04/16/21 fluticasone propionate 115 2 puff INHALATION BID #1 inhaler 04/16/21 mcg-salmeterol 21 mcg/actuation HFA inhaler lisinopril 5 mg tablet 5 mg PO DAILY #90 tab-cap 06/14/21 levothyroxine 75 mcg tablet 75 mcg PO DAILY #90 tab-cap 06/27/21 fluticasone propionate 50 50 mcg NS DAILY #16 gm 07/10/21 mcg/actuation nasal spray,suspension pantoprazole 40 mg tablet,delayed 40 mg PO DAILY #90 tab 08/03/21 release aspirin 81 mg chewable tablet 81 mg PO DAILY 08/31/21 bisacodyl 5 mg tablet,delayed 5 mg PO ONCE #4 tab 08/31/21 release polyethylene glycol 3350 17 238 g PO ONCE #238 g 08/31/21 gram/dose oral powder Current Visit Medications: Current Medications Generic Name Dose Route Start Last Admin Trade Name Freq PRN Reason Stop Dose Admin Hyoscyamine Sulfate 0.125 mg 09/10/21 06:47 Hyoscyamine 0.125 Mg Sl/Oral/Chew SL DIRECTED PRN Ringer's Solution 1,000 mls @ 80 mls/hr 09/10/21 06:00 09/10/21 10:06 IV 10/07/21 23:59 80 mls/hr INFUSION ACE Administration IV Miscellaneous Supplies 1 each 09/10/21 06:00 Iv Access IV 10/07/21 23:59 DIRECTED ACE Ondansetron HCl 4 mg 09/10/21 06:47 Ondansetron 4 Mg/2 Ml Vial IVP Q4H PRN PRN Nausea / Vomiting Sodium Chloride 0 ml 09/10/21 06:00 Normal Saline Flush 10 Ml Syr IV 10/07/21 23:59 PRN PRN Sodium Chloride 0 ml 09/10/21 06:00 Normal Saline 10 Ml Vial IJ 10/07/21 23:59 DIRECTED PRN Sterile Water 0 ml 09/10/21 06:00 Water,Injection,Sterile 10 Ml Vial IJ 10/07/21 23:59 DIRECTED PRN PFSH Active Problems Active Problems: Problem Status Onset Code Rhinitis, chronic 12/22/15 J31.0 Periodic limb movement disorder G47.61 Near syncope R55 Cerumen impaction H61.20 Encounter for screening colonoscopy Z12.11 Arthritis of right knee M17.11 Loose body of right knee M23.41 Asthma 04/16/13 J45.909 Depression 07/26/15 F32.9 Esophageal reflux disease 01/28/12 K21.9 Essential hypertension 04/16/13 I10 Hyperlipidemia 06/30/14 E78.5 Hypothyroidism 04/16/13 E03.9 Obesity 10/28/13 E66.9 Obstructive sleep apnea syndrome 03/10/13 G47.33 Medical History Medical History Asthma (04/16/13) Depression (07/26/15) Esophageal reflux disease (01/28/12) Essential hypertension (04/16/13) Hyperlipidemia (06/30/14) PCEq 3.7%; LDL baseline 108 Hypothyroidism (04/16/13) Obesity (10/28/13) Obstructive sleep apnea syndrome (03/10/13) Pedro Tai. 03/30/19 Surgical History Surgical History (Updated 09/10/21 @ 09:51 by Lu Lemus) History of colonoscopy tongue surgery removal benign lesion about 1999 Tobacco Smoking/Tobacco Use Status: Never Passive smoking exposure: Yes Alcohol Alcohol Intake: never Substance Use Substance use type: does not use Vital Signs and Lab Results Vital Signs Most Recent Vital Signs in EMR: Most Recent Vital Signs Temp Pulse Resp BP Pulse Ox 37.7 C H 97 H 18 134/98 H 100 09/10/21 09:40 09/10/21 09:40 09/10/21 09:40 09/10/21 09:40 09/10/21 09:40 Lab Results Blood Type / Crossmatch: No Data to Display Complete Blood Count: No Data to Display Complete Metabolic Panel: No Data to Display Liver Function Panel: No Data to Display Coagulation Panel: No Data to Display Cardiac Panel: No Data to Display Arterial Blood Gas: No Data to Display Venous Blood Gas: No Data to Display Pancreas Panel: No Data to Display Thyroid Panel: 2 No Data to Display Infectious Disease: Coronavirus (COVID-19)(PCR) Negative (Negative) 09/07/21 10:36 09/07/21 Coronavirus 2019 Source Nasal/Nares 09/07/21 10:36 09/07/21 Blood Cultures: No Data to Display Toxicology Panel: No Data to Display Imaging and Studies Imaging and Studies Pulmonary Function Summary: 2010: mild obstructive dz, no sig bronchodilator response. Anesthesia Assessment and Plan Anesthesia History Personal History: No History of Anesthesia Complications Family History: No Family History of Anesthesia Complications Exercise Tolerance Exercise Tolerance: Metabolic Equivalents>4 Pertinent Negatives Pertinent Negatives: No Symptoms of GERD, No Major Cardiovascular Symptoms or Complaints, No Major Pulmonary Symptoms or Complaints and No History of CVA/TIA Cardiac & Pulmonary Exam Cardiac Exam: Normal S1/S2 Heart Sounds Pulmonary Exam: Clear Bilateral Breath Sounds Airway Exam Known Difficult Airway: No Mallampati Class: 1 Mouth Opening: Normal (> 3cm) Thyromental Distance: Greater than 3 cm Facial Hair: Full Chao Neck Range of Motion: Limited ROM (Morbidly obese) Neck Circumference: Thick Teeth Condition: Normal Dentition ASA Classification ASA Score: ASA 3 Emergency Case?: No NPO Status NPO Status: NPO Clears >2 hours, Solids >8 hours Anesthesia Plan Resuscitation Status: Full Code Anesthesia Technique: General Anesthesia Airway Planned: Double Lumen Endotracheal Tube Monitors Used: Standard Monitors
[2021-09-10 11:02] VITALS: BMI 49.4
--- NOTE | 2021-09-10 11:24 | BOWEL_PTH ---
PATIENT: Andrew Mckinney LOC: [facility] U#:[id number] AGE/SX: 60/M ROOM: RE09/10/[address]: Beba Dutton MD : 1960 BED: DIS: 09/10/2021 SPEC #: [id number] RECD: 09/10/21 12:44 STATUS: [facility] RE #: [id number] MARK: 09/10/21 11:[address]: Beba Dutton DEPT: Surgical Specimen RECD BY: Cat Dash ENTERED: 09/10/21 12:45 SP TYPE: Bowel OTHR DR: Phuong Castle APRN Tissues: 1 - BIOPSY BOWEL 2 - BIOPSY BOWEL Procedures: GROSS AND MICRO LEVEL 4 Comments: [id number]
[2021-09-10 11:40] VITALS: BP 135/91; PULSE 81; RESP 18; TEMP 36.8; O2SAT 96
--- NOTE | 2021-09-10 11:40 | W.ANESPOSTOP ---
Postoperative Evaluation Date, Time and Location Date Performed: 09/10/21 Time Performed: 11:40 Patient Location: Day Surgery Unit Vital Signs Most Recent Imported Vital Signs: Most Recent Vital Signs Temp Pulse Resp BP Pulse Ox 37.7 C H 97 H 18 134/98 H 100 09/10/21 09:40 09/10/21 09:40 09/10/21 09:40 09/10/21 09:40 09/10/21 09:40 Most Recent Manually Entered Vital Signs: Adult Blood Pressure: 135/91 Heart Rate: 71 Respirations: 10 Oxygen Saturation (%): 96 Temperature (C): 36.8 C Pain Score (0-10 Scale): 0 Assessment Mental Status: Awake (Alert & Oriented to Patient Baseline) Airway and Respiratory Function: Patent airway with normal (patient baseline) respiratory exam Cardiovascular Function: Hemodynamically Stable Hydration Status: Adequately Hydrated Nausea & Vomiting: No Nausea or Vomiting Pain: Pt. Denies Any Pain Peripheral Nerve Block: Patient did not receive a nerve block
[2021-09-10 11:41] VITALS: BP 135/91; PULSE 71; RESP 10; TEMPC 36.8; O2SAT 96
[2021-09-10 12:04] VITALS: BP 140/82; PULSE 89; RESP 18; TEMP 36.3; O2SAT 96
== END 2021-09-10 12:38 | disposition home or self-care (01) ==
PROVIDERS: PCP Nurse Practitioner; Visit Provider Surgery
PROC: 0DJD8ZZ Inspection of Lower Intestinal Tract, Via Natural or Artificial Opening Endoscopic (ICD-10-PCS; CPT 45378; principal; 2021-09-10 10:30)
DX: Z12.11 Encounter for screening for malignant neoplasm of colon (principal); D12.2 Benign neoplasm of ascending colon; K57.30 Diverticulosis of large intestine without perforation or abscess without bleeding; I10 Essential (primary) hypertension; E03.9 Hypothyroidism, unspecified; K21.9 Gastro-esophageal reflux disease without esophagitis; J45.909 Unspecified asthma, uncomplicated; D12.3 Benign neoplasm of transverse colon
CPT/HCPCS: 45380; 88305; J2001; J2250; J3010

== ENCOUNTER 2021-12-19 01:47 | Outpatient (CLI) | payer MEDICAID, SELFPAY ==
[2021-12-19 11:15] LABS: HCT 44.1 % (40.0-50.0); HGB 14.8 g/dL (13.5-17.5); MCH 29.1 pg (27.0-33.0); MCHC 33.6 % (32.0-36.0); MCV 86.8 fL (80-95); MPV 8.9 fL (8.0-11.0); Platelet Count 241 10^3/uL (130-400); RBC 5.08 10^6/uL (4.36-5.78); RDW 12.6 % (11.8-14.1); RDW-SD 40.1 fL; WBC 8.06 10^3/uL (4.4-10.8)
[2021-12-19 12:56] LABS: ALT 31 U/L (16-63); AST 18 U/L (15-37); Albumin 3.6 g/dL (3.4-5.0); Alkaline Phosphatase 68 U/L (46-116); Anion Gap 8.9 mmol/L (3-11); BUN 30 mg/dL (7-18); Bilirubin, Total 0.4 mg/dL (0.2-1.0); CO2 27.1 mmol/L (21.0-32.0); CREATININE 1.3 mg/dL (0.70-1.30); Calculated LDL 126 mg/dL (<100); Chloride 104 mmol/L (98-107); Cholesterol 213 mg/dL (<200); Estimated GFR 55.94 (mL/min/1.73m2); Glucose 87 mg/dL (74-106); HDL Cholesterol 68 mg/dL (40-60); Potassium 4.6 mmol/L (3.5-5.1); Sodium 140 mmol/L (136-145); TSH (W/Ref FT4) 3.11 uIU/mL (0.36-3.74); Total Protein 7.3 g/dL (6.4-8.2); Triglyceride 96 mg/dL (<150)
== END 2021-12-19 01:48 | disposition home or self-care (01) ==
LOC: LBO 01:47
PROVIDERS: PCP Nurse Practitioner; Visit Provider Nurse Practitioner
DX: I10 Essential (primary) hypertension (principal); E03.9 Hypothyroidism, unspecified; E66.8 Other obesity; G47.33 Obstructive sleep apnea (adult) (pediatric)
CPT/HCPCS: 36415; 80053; 80061; 85027; 84443

== ENCOUNTER 2022-02-12 02:48 | Outpatient (CLI) | payer MEDICAID, SELFPAY ==
--- NOTE | 2022-02-12 07:30 | DI.US_ITS ---
Exam(s) US AAA SCREENING EXAM: US AAA SCREENING CLINICAL HISTORY: screening for aaa,z13.6 COMPARISON: No exams were available for comparison FINDINGS: Abdominal Aorta: Proximal: 2.1 x 2.8 cm Mid: 2.0 x 2.7 cm Distal: 2.1 x 2.4 cm Iliac's: Right: 1.8 x 2.0 cm Left: 1.5 x 2.2 cm No significant atherosclerotic disease is seen. IMPRESSION: No evidence of abdominal aortic aneurysm. DATA REPOSITORY:
== END 2022-02-12 03:08 ==
PROVIDERS: PCP Nurse Practitioner; Visit Provider Nurse Practitioner
DX: Z13.6 Encounter for screening for cardiovascular disorders (principal)
CPT/HCPCS: 76706

== ENCOUNTER 2022-12-16 03:06 | Outpatient (CLI) | payer MEDICAID, SELFPAY ==
[2022-12-16 11:03] LABS: HCT 41.9 % (40.0-50.0); HGB 14.3 g/dL (13.5-17.5); MCH 29.4 pg (27.0-33.0); MCHC 34.1 % (32.0-36.0); MCV 86 fL (80-95); MPV 8.8 fL (8.0-11.0); Platelet Count 214 10^3/uL (130-400); RBC 4.87 10^6/uL (4.36-5.78); RDW 13.2 % (11.8-14.1); RDW-SD 41.3 fL; WBC 7.38 10^3/uL (4.4-10.8)
[2022-12-16 11:16] LABS: Hemoglobin A1C 5.3 % (<5.7)
[2022-12-16 11:27] LABS: ALT 22 U/L (16-63); AST 19 U/L (15-37); Albumin 3.3 g/dL (3.4-5.0); Alkaline Phosphatase 74 U/L (46-116); Anion Gap 4.7 mmol/L (3-11); BUN 22 mg/dL (7-18); Bilirubin, Total 0.5 mg/dL (0.2-1.0); CO2 30.3 mmol/L (21.0-32.0); CREATININE 1.4 mg/dL (0.70-1.30); Calcium 8.9 mg/dL (8.5-10.1); Calculated LDL 113 mg/dL (<100); Chloride 104 mmol/L (98-107); Cholesterol 207 mg/dL (<200); Estimated GFR 56.48 (mL/min/1.73m2); Glucose 92 mg/dL (74-106); HDL Cholesterol 65 mg/dL (40-60); Potassium 4.3 mmol/L (3.5-5.1); Sodium 139 mmol/L (136-145); TSH (W/Ref FT4) 2.75 uIU/mL (0.36-3.74); Total Protein 7.2 g/dL (6.4-8.2); Triglyceride 147 mg/dL (<150)
== END 2022-12-16 03:07 | disposition home or self-care (01) ==
LOC: LBO 03:06
PROVIDERS: PCP Nurse Practitioner; Visit Provider Nurse Practitioner
DX: I10 Essential (primary) hypertension (principal); E78.5 Hyperlipidemia, unspecified; E03.9 Hypothyroidism, unspecified; E66.8 Other obesity; R79.89 Other specified abnormal findings of blood chemistry
CPT/HCPCS: 36415; 80053; 80061; 85027; 83036; 84443

== ENCOUNTER 2023-12-17 02:48 | Outpatient (CLI) | payer MEDICAID, SELFPAY ==
[2023-12-17 14:12] LABS: Anion Gap 9.4 mmol/L (3-11); BUN 20 mg/dL (7-18); CO2 28.6 mmol/L (21.0-32.0); CREATININE 1.2 mg/dL (0.70-1.30); Calcium 9.2 mg/dL (8.5-10.1); Calculated LDL 69 mg/dL (<100); Chloride 104 mmol/L (98-107); Cholesterol 161 mg/dL (<200); Estimated GFR 67.53 (mL/min/1.73m2); Glucose 91 mg/dL (74-106); HDL Cholesterol 79 mg/dL (40-60); Potassium 4.4 mmol/L (3.5-5.1); Sodium 142 mmol/L (136-145); Triglyceride 69 mg/dL (<150)
== END 2023-12-17 02:49 | disposition home or self-care (01) ==
LOC: LBO 02:48
PROVIDERS: PCP Nurse Practitioner; Visit Provider Nurse Practitioner
DX: E78.5 Hyperlipidemia, unspecified (principal); I10 Essential (primary) hypertension
CPT/HCPCS: 36415; 80048; 80061

== ENCOUNTER 2024-03-25 14:38 | Outpatient (CLI) | payer MEDICAID, SELFPAY ==
[2024-03-25 15:01] LABS: TSH (W/Ref FT4) 1.42 uIU/mL (0.36-3.74)
== END 2024-03-25 14:39 | disposition home or self-care (01) ==
LOC: LBO 14:39
PROVIDERS: PCP Nurse Practitioner; Visit Provider Family Medicine
DX: I10 Essential (primary) hypertension (principal); E03.9 Hypothyroidism, unspecified
CPT/HCPCS: 36415; 84443

== ENCOUNTER 2025-03-03 16:11 | Outpatient (REF) | payer MEDICARE, MEDICAID, SELFPAY ==
[2025-03-03 15:30] LABS: Bacteria Negative HPF (Negative); C & S Indicated? C&S Done As Ordered; Crystals Negative HPF (Negative); Epithelial Cells Negative HPF (Negative); Mucus Negative (Negative); RBC 0-2 HPF (0-2); WBC Negative HPF (0-5)
== END 2025-03-03 16:12 | disposition home or self-care (01) ==
LOC: LBN 16:11
PROVIDERS: PCP Nurse Practitioner; Visit Provider Physician Assistant Medical
DX: N48.89 Other specified disorders of penis (principal); R82.89 Other abnormal findings on cytological and histological examination of urine
CPT/HCPCS: 81015; 87086

== ENCOUNTER 2025-09-13 01:24 | Outpatient (CLI) | payer MEDICARE, MEDICAID, SELFPAY ==
[2025-09-13 13:50] LABS: Abs Immature Grans 0.03 10^3/uL (0.0-0.06); HCT 43.2 % (40.0-50.0); HGB 14.8 g/dL (13.5-17.5); Immature Grans % 0.4 %; MCH 30.1 pg (27.0-33.0); MCHC 34.3 % (32.0-36.0); MCV 88 fL (80-95); MPV 9.0 fL (8.0-11.0); Platelet Count 247 10^3/uL (130-400); RBC 4.92 10^6/uL (4.36-5.78); RDW 12.4 % (11.8-14.1); RDW-SD 39.7 fL; WBC 7.74 10^3/uL (4.4-10.8)
[2025-09-13 14:04] LABS: Hemoglobin A1C 5.3 % (<5.7)
[2025-09-13 14:18] LABS: ALT 17 U/L (16-63); AST 13 U/L (15-37); Albumin 3.4 g/dL (3.4-5.0); Alkaline Phosphatase 91 U/L (46-116); Anion Gap 6.7 mmol/L (3-11); BUN 23 mg/dL (7-18); Bilirubin, Total 0.6 mg/dL (0.2-1.0); CO2 29.3 mmol/L (21.0-32.0); Calcium 9.2 mg/dL (8.5-10.1); Chloride 106 mmol/L (98-107); Cholesterol 154 mg/dL (<200); Glucose 108 mg/dL (74-106); HDL Cholesterol 64 mg/dL (>or=40); Potassium 4.2 mmol/L (3.5-5.1); Sodium 142 mmol/L (136-145); TSH 1.50 uIU/mL (0.36-3.74); Total Protein 7.6 g/dL (6.4-8.2)
[2025-09-13 23:17] LABS: PSA, Screening 2.0 ng/mL (<=4.5)
== END 2025-09-13 01:25 | disposition home or self-care (01) ==
LOC: LBO 01:25
PROVIDERS: PCP Nurse Practitioner; Visit Provider Family Medicine
DX: Z13.9 Encounter for screening, unspecified (principal); I10 Essential (primary) hypertension; R53.83 Other fatigue; Z12.5 Encounter for screening for malignant neoplasm of prostate; Z13.1 Encounter for screening for diabetes mellitus; E78.5 Hyperlipidemia, unspecified
CPT/HCPCS: 36415; 80053; 80061; 84153; 83036; 84443; 85025